=== PATIENT | female | born 1980 | race Caucasian/White ===

== ENCOUNTER 2021-02-28 01:17 | Outpatient (CLI) | payer MEDICAID, SELFPAY ==
--- NOTE | 2021-02-28 13:05 | DI.MAMMO_ITS ---
Exam(s) MG MAMMO DIAGNOSTIC UNI EXAM: MG MAMMO DIAGNOSTIC UNI-LEFT CLINICAL HISTORY: F/U ABNL MAMMO, UNI LT F/U, F/U 06/06/20. TECHNIQUE: BOTH CC AND MLO VIEWS WELL EXAGGERATED CC VIEW OF THE LEFT BREAST were obtained wit h 3D Tomosynthesistechnique and utilizing computer aided detection (CAD). COMPARISON: Prior outside mammogram performed 05/30/2020. Limited left breast ultrasound performed 06/06/2020 at [facility] was reviewed. FINDINGS: The fibroglandular tissue of the left breast is moderately dense, this decreasing the sensitivity of the mammogram for finding hidden underlying lesions. There are no obvious spiculated masses nor malignant-appearing microcalcification groups in left [address]. No obvious architectural distortion nor skin thickening-retraction. IMPRESSION: Moderate dense fibroglandular tissue in left breast. No obvious radiographic evidence of malignancy. Appropriate follow-up, given the findings on the prior outside mammogram performed June 2020, wou ld be complete left breast ultrasound. The patient was informed of the findings and follow-up recommendations prior to leaving the [facility] today. BI-RADS Category 0 - Assessment Incomplete: Need additional imaging evaluation-specifically complete breast ultrasound Breast Density - Category C - Heterogeneously dense Breast density Category C or D implies that the patient has dense breast tissue. Dense breast tissue can make it harder to find cancer on a mammogram. Dense breast tissue is also associated with an incr eased risk of breast cancer. This information about the result of the mammogram report was provided to the patient to raise their awareness. Use this report when you speak with the patient about their risks for breast cancer, which includes their family history. At that time, you may recommend additional screening tests (Ultrasoun d or MRI) as these tests may add significant information. A negative radiographic report should not delay biopsy if a dominant or clinically suspicious mass is present. Up to ten percent of cancers are not identified on mammography. A negative report may reinforce clinical impression. Adenosis and dense breasts may obscure an underlying neoplasm. False positive reports average 6 to 10%. Patient will receive a letter notifying them of these results.
== END 2021-02-28 01:37 ==
PROVIDERS: PCP Nurse Practitioner Adult Health; Visit Provider Nurse Practitioner Adult Health
DX: R92.8 Other abnormal and inconclusive findings on diagnostic imaging of breast (principal); R92.2 Inconclusive mammogram
CPT/HCPCS: 77061; 77065; G0279

== ENCOUNTER 2021-03-20 01:45 | Outpatient (CLI) | payer MEDICAID, SELFPAY ==
--- NOTE | 2021-03-20 | DI.US_ITS ---
Exam(s) US BREAST LT COMPLETE EXAM: US BREAST LT COMPLETE CLINICAL HISTORY: F/U INCONCLUSIVE MAMMO,DENSE LT BREAST TISSUE TECHNIQUE: Ultrasound left breast performed using standard protocol. COMPARISON: MG MG MAMMOGRAPHY BILATERAL SCREENING from 05/30/2020 MG MG MAMMOGRAPHY BILATERAL SCREENING from 05/30/2020 MG MG MAMMO DIAGNOSTIC UNI from 02/28/2021 MG MG MAMMO DIAGNOSTIC UNI from 02/28/2021 FINDINGS: Two small cysts are seen, 1 in the 11 o'clock position 6 centimeters from the nipple measuring 4 mill imeters. The 2nd cyst measures 3 millimeters and is located in the 2 o'clock position 5 centimeters from the nipple. No solid masses, hypoechoic foci, areas of abnormal shadowing, or areas of skin th ickening. IMPRESSION: No sonographically suspicious finding. BI-RADS Category 2 - Benign Findings Resume bilateral screening mammography. DATA REPOSITORY:
== END 2021-03-20 02:05 ==
PROVIDERS: PCP Nurse Practitioner Adult Health; Visit Provider Nurse Practitioner Adult Health
DX: R92.8 Other abnormal and inconclusive findings on diagnostic imaging of breast (principal); N60.02 Solitary cyst of left breast
CPT/HCPCS: 76642

== ENCOUNTER → 2023-04-11 13:07 | Outpatient (CLI) | payer MEDICAID, SELFPAY ==
--- NOTE | 2023-04-11 15:07 | DI.RAD_ITS ---
Exam(s) XR HIP LT COMPLETE AP PELVIS EXAM: XR HIP LT COMPLETE AP PELVIS INDICATION: LT LEG PAIN, M79.605. COMPARISON: No exams were available for comparison TECHNIQUE: 2D digital imaging was performed. Two views. FINDINGS: The bones are normally mineralized. No evidence of fracture dislocation. The hip joint spaces are m aintained. No significant degenerative changes. SI joints and pubic symphysis are unremarkable. IU D is incidentally noted. No soft tissue calcifications. IMPRESSION: Negative pelvis and left hip. DATA REPOSITORY: RADIATION DOSE DELIVERED:
== END ==
PROVIDERS: PCP Nurse Practitioner Adult Health; Visit Provider Family Medicine
DX: M79.605 Pain in left leg (principal)
CPT/HCPCS: 73502

== ENCOUNTER → 2024-01-09 01:43 | Outpatient (CLI) | payer MEDICAID, SELFPAY ==
--- OUTSIDE RECORDS SUMMARY | 2024-01-09 01:45 | XMS_ITS | Patient Health Record ---
Author Name Unknown [facility] Address [address] [place] [address] Care Team Providers Care Replenishment Associate Name Role Phone GITA ALEGRIA Primary Care Provider Un available Arcelia Bermudez Unavailable [phone] ALLERGIES Allergen (clinical drug ingredient) Drug/Non Drug Allergy documented on EMR Reaction Allergy Type Onset Date Status environmental (uncoded) Unknown Allergy Active amoxicillin / clavulanate Augmentin Unknown Drug Allergy Active REASON FOR REFERRAL No Information MEDICATIONS Medication SIG (Take, Route, Frequency, Duration) Notes Start Date End Date Status -OTC, HERBALS Varies Per patient * MIRACLE MOUTHWASH: BENADRYL, MAALOX, AND LIDOCAINE 1:1:1 swish and SPIT 5cc of this mouthwash every 4 h ours as needed for mouth discomfort Active Probiotic 250 MG 1 capsule Orally Twice a day for 30 day(s) Active Fish Oil 500 MG 1 capsule Orally Once a day Active Vitamin D3 25 MCG (1000 UT) 1 capsule Orally Once a day for 30 day(s) Active ProAir HFA 108 (90 Base) MCG/ACT 1 puff as needed Inhalation every 4 hrs Active Flovent HFA 44 MCG/ACT 1 puff Inhalation Twice a day Active AeroChamber Mini Chamber - as directed Active Mirena (52 MG) 20 MCG/24HR as directed Intrauterine Active SOCIAL HISTORY Tobacco Use: Social History Observation Description Date Details (start date - stop date) Former Smoker NA - NA Sex Assigned At : Social History Observation Description Sex Assigned At Unknown SMOKING Question Answer Notes Are you a: former smoker How long has it been since you last smoked? 5-10 years PROBLEMS Problem Type ICD Code Onset Dates Problem Status W/U Status Risk SNOMED Code Notes Problem Asthma (J45.909) Active confirmed Asthma (952422366) Problem Foot pain, right (M79.671) Active confirmed Pain in limb (84803277) Problem Plantar wart of left foot (B07.0) Active confirmed Plantar wart of left foot (230572517540 93203) Problem Wart (B07.9) Active confirmed Wart (90117586) Problem Plantar wart (B07.0) Active confirmed Plantar wart (39503540) Problem Bartholin's gland cyst (N75.0) Active confirmed Bartholin's gland cyst (99142558) PLAN OF TREATMENT No Information Insurance Providers Payer Name Payer Address Payer Phone Subscriber Number Group Number Insured Name Patient Relationship to Insured Coverage Start Date Coverage End Date [place] [employer] [place], [place] [id number] SRIDHAR LANDRUM Self - patient is the insured SELF [place] [address] SRIDHAR LANDRUM Self - patient is the insured MEDICAL (GENERAL) HISTORY Medical History History ICD Code Wart B07.9 Plantar wart B07.0 Bartholin's gland cyst N75.0 Asthma J45.909 Foot pain, right M79.671 History of alcohol dependence F10.21 Hospitalization History Reason Date(Month/Year) child
--- OUTSIDE RECORDS SUMMARY | 2024-01-09 01:45 | XMS_ITS | Continuity of Care Document ---
Author Name Unknown Organization [facility] Address [address] [place] [address] Encounter LTTL_[place] FIN NBR [id number] Date(s): 05/16/23 - 05/16/23 [facility] [address] [place] [address]- [place] Discharge Disposition: Home or Self Care Attending Physician: Camille Darnell APRN Admitting Physician: Camille Darnell APRN Referring Physician: Camille Darnell APRN Assessment and Plan Future Scheduled Tests Radiology* MG Mammo Screening Bilateral 02/27/23 Results Laboratory List Name Date Automated Diff 05/16/23 CBC w/ Diff (CBC, with Auto Differential (CPT-77770)) 05/16/23 Comprehensive Metabolic Pane l (Comprehensive Metabolic Profile, Non-Fasting (CMP) (CPT-01850)) 05/16/23 Thyroid Stimulating Hormone (Thyroid Sti mulating Hormone (TSH) (CPT-13173)) 05/16/23 Vitamin D 25 Hydroxy Level (Vitamin D, 2 5-Hydroxy (CPT-96910)) 05/16/23 Most recent to oldest [Reference Range]: 1 WBC [4.8-10.8 K/mcL] 7.1 K/mcL (05/16/23 4:01 PM) RBC [4.20-5.40 Million/mcL] 4.23 Million /mcL (05/16/23 4:01 PM) Neutro Auto [42.2-75.2 %] 60.8 % (05/16/23 4:01 PM) Lymph Auto [20.5-51.1 %] 26.3 % (05/16/23 4:01 PM) Winston Auto [1.7-9.3 %] 8.7 % (05/16/23 4:01 PM) Basophil Auto [0.0-0.8 %] 1.3 % *HI* (05/16/23 4:01 PM) BUN [8-26 mg/dL] 18 mg/dL (05/16/23 4:01 PM) Glucose Level [74-106 mg/dL] 82 mg/dL (05/16/23 4:01 PM) Potassium Level [3.5-5.1 mmol/L] 4.1 mmo l/L (05/16/23 4: PM) Baso Absolute [0.0-0.2 K/mcL] 0.1 K/mcL (05/16/23 4:01 PM) MCV [81.0-99.0 fL] 87.9 fL (05/16/23 4: PM) AST [15-41 IntlUnit/L] 21 IntlUnit/L (05/16/23 4:01 PM) ALT [14-54 IntlUnit/L] 12 IntlUnit/L *LOW* (05/16/23 4: PM) MCHC [32.0-37.0 g/dL] 32.3 g/dL (05/16/23 4:01 PM) Osmolality [275-295 mOsm/kg] 277 mOsm/kg (05/16/23 4:01 PM) Sodium Level [134-143 mmol/L] 138 mmol/L (05/16/23 4: PM) Lymph Absolute [1.2-3.4 K/mcL] 1.9 K/mcL (05/16/23 4: PM) Hct [37.0-47.0 %] 37.2 % (05/16/23 4: PM) Vitamin D 25 OH [30.0-100.0 ng/mL] 68.6 ng/mL 1 (05/16/23 4:01 PM) Calcium Level [8.9-10.3 mg/dL] 9.4 mg/dL (05/16/23 4: PM) Winston Absolute [0.1-0.6 K/mcL] 0.6 K/mcL (05/16/23 4:01 PM) Albumin Level [3.5-5.0 g/dL] 4.0 g/dL (05/16/23 4: PM) Protein Total [6.5-8.1 g/dL] 6.8 g/dL (05/16/23 4:01 PM) MCH [27.0-31.0 pg] 28.4 pg (05/16/23 4:01 PM) Neutro Absolute [1.4-6.5 K/mcL] 4.3 K/mc L (05/16/23 4:01 PM) Bilirubin Total [0.2-1.2 mg/dL] 0.3 mg/d L (05/16/23 4:01 PM) Hgb [12.0-16.0 g/dL] 12.0 g/dL (05/16/23 4:01 PM) Alk Phos [38-130 IntlUnit/L] 32 IntlUnit /L *LOW* (05/16/23 4:01 PM) MPV [7.4-10.4 fL] 11.7 fL *HI* (05/16/23 4:01 PM) Platelets [130-400 K/mcL] 247 K/mcL (05/16/23 4:01 PM) CO2 [22-32 mmol/L] 25 mmol/L (05/16/23 4:01 PM) Eos Absolute [0.0-0.2 K/mcL] 0.2 K/mcL (05/16/23 4:01 PM) TSH [0.45-5.33 mcIntlUnit/mL] 1.39 mcInt lUnit/mL (05/16/23 4:01 PM) Chloride Level [98-111 mmol/L] 107 mmol/ L (05/16/23 4:01 PM) RDW-CV [11.5-14.5 %] 15.3 % *HI* (05/16/23 4:01 PM) A/G Ratio [1.0-2.5 g/dL] 1.4 g/dL (05/16/23 4:01 PM) BUN/Creat Ratio [8.0-20.0] 26.5 *HI* (05/16/23 4:01 PM) Globulin [2.3-3.5 g/dL] 2.8 g/dL (05/16/23 4:01 PM) Imm Gran Absolute [0.00-0.02 K/mcL] 0.01 K/mcL (05/16/23 4:01 PM) Imm Gran Auto [0.0-0.5 %] 0.1 % (05/16/23 4:01 PM) Slide Review Not Indicated (05/16/23 4:01 PM) Creatinine Level [0.44-1.00 mg/dL] 0.68 mg/dL (05/16/23 4:01 PM) Anion Gap [3.0-12.0] 6.0 (05/16/23 4:01 PM) Eos, Auto [0.00-3.00 %] 2.80 % (05/16/23 4:01 PM) eGFR CKD-EPI [>=60 mL/min/1.73 m2] 111 m L/min/1.73 m2 (05/16/23 4:01 PM) 1Interpretive Data: VIT D STATUS: RANGE: Deficient <20 ng/mL Insufficiency 20-30 ng/mL Sufficiency 30-100 ng/mL Toxicity >100 ng/mL Patients that have undergone flourescein dye angiography without allowing enough time for clearanceof the flourescein dye may have falsely elevated Vitamin D levels.
--- OUTSIDE RECORDS SUMMARY | 2024-01-09 01:45 | XMS_ITS | Continuity of Care Document ---
Author Name Unknown Organization [facility] Address [address] [place] [address] Care Team Providers Care Supervisor Ski Production Name Role Phone Camille Darnell APRN Primary Care Physician Encounter LTTL_MD FIN NBR [id number] Date(s): 12/30/23 - 12/30/23 [facility] [address] [place] [address]- Encounter Diagnosis Pain in right foot(Final) - Heberden's nodes (with arthropathy)(Final) - Discharge Disposition: Home or Self Care Attending Physician: BRANDON MAST APRN, V Admitting Physician: BRANDON MAST APRN, V Referring Physician: BRANDON MAST APRN, V Assessment and Plan Future Scheduled Tests Radiology* MG Mammo Screening Bilateral 12/18/23 * MG Mammo Screening Bilateral 02/27/23 Results Radiology Reports * Exam Date Time Procedure Performing Provider Status 12/30/23 11:45 AM XR Hand Complete 3+ Views Left Prospe r, [place]; Auth (Verified) Notes: (XR Hand Complete 3+ Views Left) Reason For Exam: heberdens nodes w/arthropathy;M79.671-Pain in right foot XR Hand Complete 3+ Views Left EXAM DESCRIPTION: XR Hand Complete 3+ Views Left 12/30/2023 INDICATION: Left hand pain COMPARISON: None IMPRESSION: No acute fracture or dislocation No significant regional arthritic changes. Joint spaces are well maintained No focal lytic or sclerotic lesion Small soft tissue calcification adjacent to the ulnar aspect of the 2nd DIP joint which may reflect sequela of old injury. JOB #: [id number] Final Signed by: Modesto Pepper MD Signed (Electronic Signature): 12/30/2023 12:32 pm * Exam Date Time Procedure Performing Provider Status 12/30/23 11:45 AM XR Foot Complete 3+ Views Right Prosp er, [place]; Auth (Verified) Notes: (XR Foot Complete 3+ Views Right) Reason For Exam: pain in right foot XR Foot Complete 3+ Views Right EXAM DESCRIPTION: XR Foot Complete 3+ Views Right 12/30/2023 INDICATION: PAIN IN RIGHT FOOT COMPARISON: 07/18/2017 FINDINGS: No acute fracture, dislocation or bone destructive process. Joint spaces are maintained. No radiographic foreign bodies are seen. IMPRESSION: 1. No acute fracture, dislocation or bone destructive process. JOB #: [id number] Final Signed by: Modesto Pepper MD Signed (Electronic Signature): 12/30/2023 11:50 am Patient Care team information Care Team Personnel Name: Camille Darnell APRN Position: Physician Member Role: Primary Care Physician Address: Address: [address]
--- NOTE | 2024-01-09 12:12 | DI.MAMMO_ITS ---
Exam(s) MAMMO SCREENING EXAM: MAMMO SCREENING CLINICAL HISTORY: SCREENING, Z12.31. TECHNIQUE: Bilateral full field digital CC and MLO mammographic images were obtained with 3D tomosyn thesis and utilizing computer aided detection (CAD). COMPARISON: Prior mammograms were reviewed. FINDINGS: There has been no significant change in the appearance and distribution of the fibroglandular tissue which is again noted be moderately dense.. Asymmetric densities in both breasts appear unchanged from prior mammograms. There are no obvious new spiculated masses nor malignant appearing microcalcification groups. There is no significant architectural distortion nor skin thickening-retraction. IMPRESSION: No radiographic evidence of malignancy. BI-RADS Category 1 - Negative Breast Density - Category C - Heterogeneously dense Breast density Category C or D implies that the patient has dense breast tissue. Dense breast tissue can make it harder to find cancer on a mammogram. Dense breast tissue is also associated with an incr eased risk of breast cancer. This information about the result of the mammogram report was provided to the patient to raise their awareness. Use this report when you speak with the patient about their risks for breast cancer, which includes their family history. At that time, you may recommend additional screening tests (Ultrasoun d or MRI) as these tests may add significant information. A negative radiographic report should not delay biopsy if a dominant or clinically suspicious mass is present. Up to ten percent of cancers are not identified on mammography. A negative report may reinforce clinical impression. Adenosis and dense breasts may obscure an underlying neoplasm. False positive reports average 6 to 10%. Patient will receive a letter notifying them of these results.
== END ==
PROVIDERS: PCP Nurse Practitioner Adult Health; Visit Provider Nurse Practitioner Adult Health
DX: Z12.31 Encounter for screening mammogram for malignant neoplasm of breast (principal); R92.333 Mammographic heterogeneous density, bilateral breasts
CPT/HCPCS: 77063; 77067

== ENCOUNTER 2024-08-16 09:18 | Outpatient (CLI) | payer MEDICAID, SELFPAY ==
--- NOTE | 2024-08-16 06:00 | DI.RAD_ITS ---
Exam(s) XR PAIN CLINIC CERVICAL SP 2V EXAM: XR PAIN CLINIC CERVICAL SP 2V CLINICAL HISTORY: DX: Cervical Racidulopathy TECHNIQUE: 2D and realtime digital imaging was performed. Radiologist not present. CONTRAST MATERIAL: None. COMPARISON: No exams were available for comparison FINDINGS: Fluoroscopy was provided for pain management therapy. Cervical spine epidural steroid injection. Please refer to procedure report or details. Radiation Exposure Index: Ka,r=2.34 mGy IMPRESSION: As above. RADIATION DOSE DELIVERED:
[2024-08-16 09:22] VITALS: BP 127/70; PULSE 54; RESP 20; TEMP 36.7; O2SAT 100
--- NOTE | 2024-08-16 10:07 | PDOC.PAIN_ITS ---
Date of service: 08/16/24 Time of Service: 10:12 Pain Managment Procedure Note Procedure Note Procedure Note: CERVICAL EPIDURAL STEROID INJECTION ? Pre-procedure Diagnosis: M54.12- Radiculopathy, cervical region ? Post-procedure Diagnosis:? The same as above ? Sedation:? ? none ? Medication: Depo-Medrol 80 mg, Omnipaque 1 mL ? Estimated blood loss:? less than 2 cc ? Surgeon:? Pascual Knowles MD Comment: Patient with some mild foraminal stenosis and left upper extremity pain ? Procedure Detail:? The procedure and potential risks were explained to the patient and informed written consent was obtained. The patient was escorted to the procedure room and placed in the prone position. Pillows were utilized for proper positioning and comfort. Time out was performed in the procedure room with nursing staff confirming the patient's identity, procedure to be performed, allergies, and any blood thinning or anti-platelet medications.? The patient's neck and upper back was prepped with ChloraPrep and draped in a sterile fashion. Sterile technique was maintained throughout the procedure.? Sterile gloves were used, a face mask was worn, and new single dose vials of all medications were used with the top being swabbed with alcohol and given time to dry prior to withdrawal of medication. Lidocaine 1% was used to anesthetize the skin. Using a 25-gauge 1.5 inch needle, 1% lidocaine was instilled into the superficial soft tissue overlying the targeted area to provide local anesthesia. With fluoroscopic guidance, a 17 -gauge Tuohy needle was advanced toward the interlaminar space of C7-T1. The needle was then advance through the ligamentum flavum and into the posterior epidural space using the loss of resistance technique. Correct needle placement was confirmed through review of the AP and contralateral oblique fluoroscopic views. A 19-gauge Arrow catheter was threaded cephalad to the Left C5-6 Following negative aspiration, one cc of Omnipaque 240 contrast was injected which confirmed good flow throughout the epidural space and no evidence of vascular flow or flow into adjacent compartments. Next, following negative aspiration, 1 cc's of normal saline and 80mg of Depo-Medrol was injected. The needle and catheter were gently removed intact. The patient tolerated the procedure well and was transported to the recovery area for observation and disc harge instructions. Permanent images saved and recorded. Plan:? Follow up PRN. PAIN PRE PROCEDURE 08/16 POST PROCEDURE 07/16 COMMENT: Could repeat as needed or if not improving with having neurology evaluation with nerve.
[2024-08-16 10:21] VITALS: PULSE 62; O2SAT 97
[2024-08-16] MEDS: methylPREDNISolone ACETATE 40 MG/ML VIAL IJ (10:22)
[2024-08-16] MEDS: Omnipaque 240 MG/ML 50 ML BTL IJ (10:22)
[2024-08-16] MEDS: Epidural Tray 1 EACH MC (10:26)
== END 2024-08-16 09:19 | disposition home or self-care (01) ==
LOC: PC 09:19
PROVIDERS: PCP Nurse Practitioner Adult Health; Visit Provider Anesthesiology Pain Medicine
DX: M54.12 Radiculopathy, cervical region (principal)
CPT/HCPCS: 00123; 62321; 72040; J1010; Q9967